=== PATIENT | male | born 1980 | race Caucasian/White ===

== ENCOUNTER 2023-03-28 15:04 | Emergency (ER) | payer OTHER, SELFPAY ==
--- NOTE | 2023-03-28 15:07 | ED.WOUNDLAC ---
HPI - Wound/Laceration General Chief Complaint: Wound/Laceration Stated Complaint: lac on face Source: patient and RN notes reviewed Mode of arrival: ambulatory Limitations: no limitations History of Present Illness HPI narrative: Patient is a 42-year-old male who presents to the [facility] with complaints of laceration to his face. Patient states that he had a jeep control arm fall on his face while he was working on the vehicle. He presents with a small 0.5 cm laceration to the bridge of his nose and a 2.5 cm laceration below his left eye just below the periorbital space. Bleeding of the wounds is controlled at this time. He denies loss of consciousness. Patient states that he attempted to glue the wound shut on his own at home just prior to arrival without success. States that his last tetanus was just under 10 years ago. Related Data Allergies Allergy/AdvReac Type Severity Reaction Status Date / Time No Known Allergies Allergy Verified 03/28/23 15:22 Review of Systems Review of Systems: CONSTITUTIONAL: Denies fever, chills, or sweats. EYES: Denies visual changes, redness, or discharge. ENT: Denies otalgia and sore throat CARDIOVASCULAR: Denies chest pain, palpitations, or edema. RESPIRATORY: Denies cough or dyspnea. GASTROINTESTINAL: Denies abdominal pain, nausea, vomiting, or diarrhea. GENITOURINARY: Denies dysuria or hematuria. SKIN: Denies rash or itching. Laceration to bridge of nose and just below the left periorbital space. MUSCULOSKELETAL: Denies back pain, joint pain, or myalgia. NEUROLOGIC: Denies headache, numbness, or weakness. Pertinent positives per HPI. [facility] Family History Family History Father Family history of lung cancer Patient's father is Mother Family history of malignant neoplasm of breast in first degree relative Patient's mother is Social History Social History Smoking status: Former smoker Smoking end date: 09/04/13 Alcohol intake: current Alcohol use details: social drinker Substance use: never Substance use type: does not use Comments At the time of my signature, I reviewed and agree with the nursing past medical, surgical, social, and family history. There is no relevant family history pertinent to the patient complaint. Exam Narrative: GENERAL: This is a well-nourished, well-developed patient, in no apparent distress. HEAD: normocephalic, atraumatic. EYES: PERRL. Sclera clear/white. Vision is grossly intact. EARS: External ears normal, auditory canals clear and without drainage, TMs normal without perforation. Hearing grossly intact. NOSE: External nose normal with no obvious nasal discharge, nares without redness, no rhinorrhea. THROAT: Mucous membranes moist, posterior pharynx clear. NECK: Neck supple, non-tender without lymphadenopathy, masses or thyromegaly. CARDIOVASCULAR: Regular rate and rhythm without murmurs, gallops, or rubs. RESPIRATORY: Clear to auscultation. Breath sounds equal bilaterally. No wheezes, rales, or rhonchi. GASTROINTESTINAL: Abdomen soft, non-tender, nondistended. Bowel sounds are active. No hepato-splenomegaly, or palpable masses. No guarding. SKIN: warm no suspicious lesions or rash, good texture and turgor. 0.5 cm laceration to bridge of nose. 2.5 cm laceration just below left periorbital area. Bleeding of wounds is controlled. NEURO: awake, alert, and oriented to person, place and time. There were no obvious focal neurologic abnormalities. EXTREMITIES: No clubbing, cyanosis, or edema. No joint tenderness, effusion, or edema noted. BACK: Nontender without deformity or crepitance. No flank tenderness. Course Course Level of Care: Express Care Visit Vital Signs Vital signs: Reviewed Procedures Laceration Laceration 1: Date: 03/28/23 Time: 15:36 Site:
[2023-03-28 15:14] VITALS: BP 138/77; PULSE 100; RESP 16; TEMP 36.9; O2SAT 98
[2023-03-28] MEDS: LIDOCAINE, EPINEPHRINE, TETRACAINE VISCOUS SOLN 3 ML TOPICAL (15:33)
[2023-03-28] MEDS: TETANUS,DIPHTHERIA,AC PERTUSSIS ADULT (0.5 ML) BOOSTRIX IM (15:34)
== END 2023-03-28 15:58 | disposition home or self-care (01) ==
PROVIDERS: Emergency Provider Nurse Practitioner; PCP Family Medicine
DX: S01.412A Laceration without foreign body of left cheek and temporomandibular area, initial encounter (principal); S01.21XA Laceration without foreign body of nose, initial encounter; W20.8XXA Other cause of strike by thrown, projected or falling object, initial encounter; Z23 Encounter for immunization; Z87.891 Personal history of nicotine dependence; K21.9 Gastro-esophageal reflux disease without esophagitis; Z86.14 Personal history of Methicillin resistant Staphylococcus aureus infection
CPT/HCPCS: 12011; 90471; 90715; 99212; G0463

== ENCOUNTER 2024-01-22 07:03 | Outpatient (CLI) | payer OTHER, SELFPAY ==
[2024-01-22 19:51] LABS: Hematocrit 45.4 % (42.0-52.0); Hemoglobin 14.5 g/dL (14.0-18.0); Mean Corpuscular HGB Conc 31.9 g/dl (32-36); Mean Corpuscular Hemoglobin 28.7 pg (26-34); Mean Corpuscular Volume 89.7 fl (80-100); Mean Platelet Volume 9.8 fl (7.4-10.4); Platelet Count Result 285 k/mm3 (150-375); Red Blood Count 5.06 M/mm3 (4.6-6.20); Red Cell Distribution Width 13.5 % (11.5-14.5); White Blood Count 7.5 K/mm3 (4.5-10.0)
[2024-01-22 19:59] LABS: Alanine Aminotransferase 17 U/L (6-50); Albumin Level 4.8 g/dL (3.5-5.1); Alkaline Phosphatase 79 U/L (38-126); Anion Gap 6 mmol/L (4-12); Aspartate Amino Transferase 49 U/L (17-59); Bilirubin,Total 0.6 mg/dL (0.2-1.3); Blood Urea Nitrogen 17 mg/dL (9-20); Calcium 9.3 mg/dL (8.4-10.2); Carbon Dioxide 28 mmol/L (22-30); Chloride 104 mmol/L (98-107); Cholesterol 168 mg/dL (0-200); Estimated Glomerular Filt Rate > 60; Glucose 104 mg/dL (65-110); HDL Direct 42 mg/dL; Potassium 4.3 mmol/L (3.4-5.0); Sodium 138 mmol/L (137-145); Triglycerides 152 mg/dL (<150)
[2024-01-22 20:11] LABS: LDL Cholesterol Direct 102 mg/dL
== END 2024-01-22 07:04 | disposition home or self-care (01) ==
PROVIDERS: PCP Nurse Practitioner Adult Health; Visit Provider Nurse Practitioner Adult Health
DX: Z13.9 Encounter for screening, unspecified (principal); Z79.899 Other long term (current) drug therapy
CPT/HCPCS: 36415; 80053; 80061; 82607; 82746; 84443; 85027

== ENCOUNTER 2024-02-16 01:28 | Day surgery (SDC) | payer OTHER, SELFPAY ==
[2024-02-08 10:24] VITALS: BMI 21.9
--- NOTE | 2024-02-08 10:32 | PC.NURSE ---
Report to the Outpatient Waiting Room, entrance under the green pavilion located off [facility], at time _0600_ on date _[id number]_. Planned Procedure Time: _0730_. Time changes happen often and if your time is changed the preop area will call you the afternoon before. - You and your visitor will be asked to self-screen and do not enter if you have any COVID symptoms. - A mask is optional within the hospital at this time. Patients may have clear liquids (water, carbonated beverages, clear teas, apple juice) until 3 hours prior to surgery with a maximum of 20 ounces. - No food from midnight until time of surgery Take the following medications with a SIP of water the morning of surgery: ___Zorfran or dicyclomine if needed. DO NOT STOP ANY OF YOUR OTHER PRESCRIPTION MEDICATIONS PRIOR TO SURGERY ?EXCEPT THE FOLLOWING Medications to discontinue per physician ____Vitamin B-12 Date to take last zxwl___[id number] Please no make-up, nail bermudian, hairspray, perfume, deodorant, or body powder the day of surgery. No jewelry (including any body piercings) or valuables the day of surgery, leave them at home. Please take ahildre shower or bath the night before, or the morning of, surgery with an antibacterial soap. Wear comfortable, loose fitting clothing. - Jewelry must be removed prior to entering the operating room. Rings and piercings that are not removed may be cut off. - The hospital will not accept responsibility for valuables. - Please leave all valuables, including medications, at home the day of surgery. If you are going home after surgery, a licensed distribution driver must drive you home. - NO public transportation without another adult if you receive anesthesia. - We recommend that an adult stay with you for 24 hours following discharge. - We also recommend that you do not drive, make important decision, drink alcoholic beverages, or take any drugs that were not prescribed by your health care provider for at least 24 hours after your discharge time. Follow any additional instructions given to you from your surgeon. If you or anyone in your household have experienced Covid symptoms in the past week, please notify your surgeon or the nurse liaison at the phone number below for possible testing. Telephone instructions given to __Justin__and asked if any additional questions and then verbalized understanding. Patient advised to call surgeon office or pre surgery nurse liaison [phone] if any additional questions.
[2024-02-16] VITALS (9 sets, daily range): BP systolic 94–120; BP diastolic 53–78; PULSE 55–70; RESP 12–20; TEMP 36.4; O2SAT 98–100
--- NOTE | 2024-02-16 06:42 | WPDANESEPPF ---
Anes - Initial Pre Proc Eval Procedure: Operation Date: 02/16/24 07:30 Proposed Procedures p Excision Frontal Scalp Cyst - Arron Basilio MD Date/Time: 02/16/24 06:42 Surgeon: Arron Basilio MD Pre Op Diagnosis: Frontal Scalp cyst Patient Data Age: 43 Gender: M Height: 1.83 m Weight: 73.2 kg Allergies Allergy/AdvReac Type Severity Reaction Status Date / Time No Known Allergies Allergy Verified 02/16/24 06:18 Home Medications Medication Instructions Recorded Confirmed Type omeprazole 40 mg capsule,delayed 40 mg PO DAILY 01/18/24 02/16/24 History release sertraline 25 mg tablet 25 mg PO DAILY #30 tabs 01/18/24 02/16/24 Rx mecobalamin (vitamin B12) 1,000 1,000 mcg sublingual DAILY #90 tabs 01/23/24 02/16/24 Rx mcg disintegrating tablet,sublingual dicyclomine 10 mg capsule 10 mg PO TID PRN abdominal pain 02/05/24 02/16/24 Rx #90 caps ondansetron HCl 4 mg tablet 4 mg PO Q8H PRN nausea and 02/06/24 02/08/24 Rx vomiting #20 tabs Patient hx anesthesia problems: none Family hx anesthesia problems: none Results Review: All pre-operative results and documents have been reviewed as part of the pre-operative evaluation. [facility] Past Medical History Medical History Bronchitis Right acute otitis media Seasonal allergies Surgical History Surgical History Hx of lymph node excision 2009 Family History Family History Father Family history of lung cancer Patient's father is Mother Family history of malignant neoplasm of breast in first degree relative Patient's mother is Social History Social History Smoking packs per day: 0.5 Smoking cigarettes per day: 10.0 Years smoked: 8 Smoking pack-years: 4.00 Smoking status: Former smoker Tobacco type: cigarettes Smoking end date: 02/07/14 Alcohol intake: current Alcohol use details: social drinker Substance use: current Substance use type: marijuana Other substance usage details: very seldom Lack of Transportation: No Lack of Food: Never True Current Housing: I Have Housing Concerned About Future Housing: No Difficulty Paying Gas/Electric Bills: No Difficulty Paying for Meds: No Currently Unemployed: No Education: High School Diploma/GED Living arrangements: with family Occupation/Education: occupation Gender identity (if verbalized by the patient): Male Spiritual care concerns: No Anes - Eval Final PreProcedure Day of Procedure 02/16/24 06:42 Patient weight: normal Heart: regular rate and rhythm Lungs: clear to auscultation Airway: Mallampati scale Neurological: alert and oriented Last oral intake: >/= 8 hours ASA classification: II Emergent: no Anesthetic plan: proceed Anesthesia type and monitoring: general LMA and standard monitoring Results Review: All pre-operative results and documents have been reviewed as part of the pre-operative evaluation. Ex smoker, approx 10 pack years, quit 2013. Informed Consent: The patient's anesthetic plan and its attendant risks and benefits were discussed with the patient/family/POA. Questions were solicited and answers provided to the satisfaction of the patient/family/POA.
[2024-02-16] MEDS: LACTATED RINGERS 1,000 ML 30 ML IV CONT ×2 (07:06→08:28)
--- NOTE | 2024-02-16 07:20 | WPDHPUPDATE1 ---
History and Physical Update Update Date/Time: 02/16/24 07:20 History and Physical has been reviewed, including an updated exam of the patient. There are NO changes in the patient's condition. Risks, benefits, and alternatives have been discussed and questions answered. Patient agrees to proceed with procedure.
[2024-02-16] MEDS: ceFAZolin 2 GM/D5W 50 ML 2 GM/50 ML BAG IVPB (07:32)
[2024-02-16] MEDS: LIDO 1%/EPINEPHRINE 1:100,000 50 ML VIAL 10 ML INFILTRATE (08:05)
[2024-02-16] MEDS: BUPivacaine HCL 0.5% 10 ML AMP INFILTRATE (08:06)
--- NOTE | 2024-02-16 08:40 | P.OP_ITS ---
Procedure Note - Detailed Date of Procedure 02/16/24 Pre-op Diagnosis Frontal Scalp cyst Post-op Diagnosis Other (Frontal scalp lipoma) Procedure Performed Excision of frontal scalp lipoma Surgeon Arron Basilio MD Anesthesia General Indications Patient is a 43-year-old white male who presented with a frontal scalp mass which been present for many years but slowly enlarging. Never had any prior history of infection of it. Presents now for excision because it is enlarging. Findings Patient had a 2x1.5x0.5cm frontal scalp lipomatous mass consistent with a benign lipoma. Description of Procedure After informed consent was obtained patient brought to the operating room was placed in supine position and then general LMA anesthesia was administered. The frontal scalp region was then prepped and draped usual sterile fashion. A time- out was then performed correctly identifying the patient as well as procedure to be performed. He was given some perioperative IV antibiotics. I 1st injected 1% lidocaine mixed with 0.5% Marcaine with some epinephrine around the subcutaneous scalp cyst mass. I then made a longitudinal incision over the central portion the mass the scalpel and then dissection was carried down through the dermis skin of the scalp. Once I got to subcutaneous tissues I then used electrocautery to dissect down to the wall of the mass. The extended underneath the layer of tissue which was likely the upper neurotic attachment of the frontal scalp and forehead muscle. This was then likely as sub muscular lipomatous mass. Once I opened this layer I could tell that was not a cyst and that it was a lipomatous mass. With retractors in place I could easily resected the Carter is mass utilized electrocautery right off of the frontal portion of the skull. There is no erosion of the mass into the bone at all. Once the masses we incised electrocautery it was measured and it was 2x1.5x0.5cm. It was sent to pathology for examination I then irrigated the incision with sterile saline solution. Hemostasis was excellent. I then proceeded to inject more local anesthetic mixture around the area for postoperative pain relief. I then performed a simple closure of the incision utilizing a 3-0 Prolene suture placed in a running and locking fashion. The wound was hemostatic. There was then cleaned and the patient was then awakened and taken to recovery. The patient tolerated the procedure well no complications. All sponges, needles, and instrument counts were correct at the end procedure. EBL was _10__cc. The patient was awakened and taken to recovery in stable and satisfactory condition. Implants None Estimated Blood Loss 10 Drains No Packing No Pathology Yes (Lipomatous mass of scalp sent to pathology) Complications No immediate complications Condition Stable Disposition PACU [facility] Billing Surgery - Charge Forward: Surgery Billing
== END 2024-02-16 10:08 | disposition home or self-care (01) ==
PROVIDERS: PCP Nurse Practitioner Adult Health; Visit Provider Surgery
PROC: (CPT 21012; principal; 2024-02-16 07:30)
DX: D17.0 Benign lipomatous neoplasm of skin and subcutaneous tissue of head, face and neck (principal); F12.90 Cannabis use, unspecified, uncomplicated; Z87.891 Personal history of nicotine dependence
CPT/HCPCS: 21012; 88304; A9270; J0690; J1100; J2250; J2405; J2704; J3010; J7120

== ENCOUNTER 2024-02-29 15:27 | Outpatient (CLI) | payer OTHER, SELFPAY ==
--- NOTE | ~2024-02-29 | US_ITS ---
EXAMINATION: US soft tissue UE LT DATE: 02/29/2024 16:26 INDICATION: Palpable lump at the left index finger TECHNIQUE: Multiple grayscale and Doppler ultrasound images of the region of concern at the left seco nd digit were obtained. COMPARISON: None FINDINGS: At the region of concern is an approximately 10 x 7 x 7 mm heterogeneous likely solid nodule which wi th isoechoic central components and peripheral hypoechogenicity with refraction artifact extending po steriorly from the margins of the nodule. The nodule appears to be positioned along the superficial m argin of the underlying flexor tendon. There is no appreciable internal flow on color Doppler. IMPRESSION: 1. Palpable lump of concern corresponds to an indeterminate 10 x 7 x 7 mm heterogeneous solid nodule which appears to be located along the superficial margin of the flexor tendon at the right second dig it. Differential would include neoplasm typically benign such as giant cell tumor of the tendon sheat h, fibromas, lipomas, peripheral nerve sheath tumors and glomus tumor or rarely malignant. Differenti al would also include inflammatory pseudonodules in setting of rheumatoid arthritis, tophaceous gout or foreign body granuloma. Would consider correlation with both plain radiographs to assess for matri x and either bone or periosteal involvement and with MRI to better assess any interaction between the nodule and the tendon sheath. Reviewed, dictated and finalized at location B. IMPRESSION: 1. Palpable lump of concern corresponds to an indeterminate 10 x 7 x 7 mm heter ogeneous solid nodule which appears to be located along the superficial margin of the flexor tendon at the right second digit. Differential would include neop lasm typically benign such as giant cell tumor of the tendon sheath, fibromas, lipomas, peripheral nerve sheath tumors and glomus tumor or rarely malignant. D ifferential would also include inflammatory pseudonodules in setting of rheumat oid arthritis, tophaceous gout or foreign body granuloma. Would consider correl ation with both plain radiographs to assess for matrix and either bone or perio steal involvement and with MRI to better assess any interaction between the nod ule and the tendon sheath.
== END 2024-02-29 15:28 | disposition home or self-care (01) ==
LOC: ANHIMG 15:28
PROVIDERS: PCP Nurse Practitioner Adult Health; Visit Provider Plastic Surgery
DX: R22.32 Localized swelling, mass and lump, left upper limb (principal)
CPT/HCPCS: 76882

== ENCOUNTER 2024-03-28 02:25 | Day surgery (SDC) | payer OTHER, SELFPAY ==
[2024-03-25 14:27] VITALS: BMI 22.0
--- NOTE | 2024-03-25 14:33 | PC.NURSE ---
Addendum entered by Bob Zuniga RN 03/25/24 14:40: Stop Vitamin B-12 now till after surgery. Original Note: Report to the Outpatient Waiting Room, entrance under the green pavilion located off [facility], at time _0715_ on date _[id number]_. Planned Procedure Time: _0915_. Time changes happen often and if your time is changed the preop area will call you the afternoon before. - You and your visitor will be asked to self-screen and do not enter if you have any COVID symptoms. - A mask is optional within the hospital at this time. - No food or drink from midnight until time of surgery Take the following medications with a SIP of water the morning of surgery: ___None DO NOT STOP ANY OF YOUR OTHER PRESCRIPTION MEDICATIONS PRIOR TO SURGERY ?EXCEPT THE FOLLOWING Medications to discontinue per physician None Date to take last dose Please no make-up, nail french, hairspray, perfume, deodorant, or body powder the day of surgery. No jewelry (including any body piercings) or valuables the day of surgery, leave them at home. Please take a shower or bath the night before, or the morning of, surgery with an antibacterial soap. Wear comfortable, loose fitting clothing. - Jewelry must be removed prior to entering the operating room. Rings and piercings that are not removed may be cut off. - The hospital will not accept responsibility for valuables. - Please leave all valuables, including medications, at home the day of surgery. If you are going home after surgery, a licensed commercial driver must drive you home. - NO public transportation without another adult if you receive anesthesia. - We recommend that an adult stay with you for 24 hours following discharge. - We also recommend that you do not drive, make important decision, drink alcoholic beverages, or take any drugs that were not prescribed by your health care provider for at least 24 hours after your discharge time. Follow any additional instructions given to you from your surgeon. If you or anyone in your household have experienced Covid symptoms in the past week, please notify your surgeon or the nurse liaison at the phone number below for possible testing. Telephone instructions given to ___Justin___and asked if any additional questions and then verbalized understanding. Patient advised to call surgeon office or pre surgery nurse liaison [phone] if any additional questions.
--- NOTE | 2024-03-28 07:02 | P.OP_ITS ---
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 The patient signed the consent form. PROCEDURE IN DETAIL:The patient taken back to OR on the stretcher in supine position. Time out performed with anesthesia, surgeon and staff agreeing on patient's name site and surgery to be performed SCDs were placed on the lower extremities and inflated. A tourniquet was placed on {left} upper extremity and antibiotics given IV After anesthesia administered sedation I injected {4}cc 1%lido and 0.5% marcaine plain for digital block in the palm The?{left upper extremity}?was prepped and draped in sterile fashion the??{left upper extremity} was? exsanguinated with Esmarch bandage proximal to the mass and tourniquet inflated to 250mmHg I proceeded with making a Karma incision over the mass on the volar aspect of left index finger over middle phalan through skin and dermis with a 15 blade scalpel. I elevated skin flap and then proceeded with using littler scissor to spread through subq tissue down to the mass in the deep tissue between subq and tendon sheath. I proceeded with circumferential of this cystic mass en bloc. The digital neurovascular bundles were protected throughout the procedure. I irrigated with normal saline and closed with 4-0 chromic sharply excise excess skin with 15 blade scalpel. A dressing of xeroform, 4x4, and tube gauze was applied after the tourniquet was let down noting the hand was warm and well perfused. The patient was then awaken from anesthesia and transferred to the recovery room in stable condition.? Complications - none EBL- 0cc Disposition - home in stable conditions [facility] was essential for positioining, retraction, closure and dressing placement [facility] [place] Billing Surgery - Charge Forward: Surgery Billing ([id number] for perri)
--- NOTE | 2024-03-28 07:02 | PM.HPGS ---
History of Present Illness History of Present Illness Chief complaint: localized swelling of mass and lump upper left Narrative: Patient seen and examined in pre-operative holding area. No interval change in medical history or symptoms. Patient recalls previous discussion of benefits and alternatives to procedure. Continues to desire to proceed with left index finger mass excision . Reviewed procedure, post-op expectations and risks including but not limited to bleeding, infection, injury to tendon/nerve/vessel, decreased hand function, stiffness, RSD, no change or worsening of symptoms, recurrence. I discussed the possible use of assistants and their participation in the case. Patient stated understanding and signed the consent form wishing to proceed. Review of Systems Review of Systems: All systems reviewed & are unremarkable except as noted in HPI and below PMFSH Past Medical History Medical History Bronchitis Right acute otitis media Seasonal allergies Surgical History Surgical History (Updated 02/27/24 @ 10:43 by Glia Cantu CMA) Hx of lymph node excision 2009 S/P excision of lipoma excision of frontal scalp lipoma 02/16/24 Dr. Arron Basilio Family History Family History Father Family history of lung cancer Patient's father is Mother Family history of malignant neoplasm of breast in first degree relative Patient's mother is Social History Social History Smoking packs per day: 0.5 Smoking cigarettes per day: 10.0 Years smoked: 18 Smoking pack-years: 9.00 Smoking status: Former smoker Tobacco type: cigarettes Smoking end date: 03/25/10 Alcohol intake: current Alcohol use details: social drinker Substance use: current Substance use type: marijuana Other substance usage details: very seldom Lack of Transportation: No Lack of Food: Never True Current Housing: I Have Housing Concerned About Future Housing: No Difficulty Paying Gas/Electric Bills: No Difficulty Paying for Meds: No Currently Unemployed: No Education: High School Diploma/GED Living arrangements: with family Occupation/Education: occupation Gender identity (if verbalized by the patient): Male Spiritual care concerns: No Meds Home Medications and Allergies Home Medications Medication Instructions Recorded Confirmed Type dicyclomine 10 mg capsule 10 mg PO TID PRN abdominal pain 02/05/24 03/25/24 Rx #90 caps ondansetron HCl 4 mg tablet 4 mg PO Q8H PRN nausea and 02/06/24 03/25/24 Rx vomiting #20 tabs mecobalamin (vitamin B12) 1,000 1,000 mcg sublingual DAILY #90 tabs 02/21/24 03/25/24 Rx mcg disintegrating tablet,sublingual omeprazole 40 mg capsule,delayed 40 mg PO DAILY #90 caps 02/21/24 03/25/24 Rx release sertraline 25 mg tablet 25 mg PO DAILY #90 tabs 02/26/24 03/25/24 Rx Allergies Allergy/AdvReac Type Severity Reaction Status Date / Time No Known Allergies Allergy Verified 03/25/24 14:26 Exam Narrative: unchanged Assessment and Plan Assessment and plan (1) Localized swelling, mass and lump, left upper limb: Code(s): R22.32 - Localized swelling, mass and lump, left upper limb Status: Acute Assessment and Plan: cont as above
[2024-03-28 07:30] VITALS: BP 118/7; PULSE 68; RESP 16; TEMP 36.8; O2SAT 100; BMI 21.4
[2024-03-28] MEDS: LIDOCAINE HCL 1% LOCAL INJ 20 ML VIAL 10 ML INFILTRATE (07:44)
[2024-03-28] MEDS: LACTATED RINGERS 1,000 ML 30 ML IV CONT (08:00)
--- NOTE | 2024-03-28 08:18 | WPDANESEPPF ---
Anes - Initial Pre Proc Eval Procedure: Operation Date: 03/28/24 09:15 Proposed Procedures p Excision of Left Index Finger Mass - Semaj De Guzman MD Date/Time: 03/28/24 08:18 Surgeon: Semaj De Guzman MD Pre Op Diagnosis: localized swelling of mass and lump upper left Patient Data Age: 43 Gender: M Height: 1.83 m Weight: 71.7 kg Allergies Allergy/AdvReac Type Severity Reaction Status Date / Time No Known Allergies Allergy Verified 03/28/24 08:15 Home Medications Medication Instructions Recorded Confirmed Type dicyclomine 10 mg capsule 10 mg PO TID PRN abdominal pain 02/05/24 03/25/24 Rx #90 caps ondansetron HCl 4 mg tablet 4 mg PO Q8H PRN nausea and 02/06/24 03/25/24 Rx vomiting #20 tabs mecobalamin (vitamin B12) 1,000 1,000 mcg sublingual DAILY #90 tabs 02/21/24 03/25/24 Rx mcg disintegrating tablet,sublingual omeprazole 40 mg capsule,delayed 40 mg PO DAILY #90 caps 02/21/24 03/25/24 Rx release sertraline 25 mg tablet 25 mg PO DAILY #90 tabs 02/26/24 03/25/24 Rx Patient hx anesthesia problems: none Family hx anesthesia problems: none Results Review: All pre-operative results and documents have been reviewed as part of the pre-operative evaluation. ON LICENSE OF [facility] Past Medical History Medical History Bronchitis Right acute otitis media Seasonal allergies Surgical History Surgical History Hx of lymph node excision 2009 S/P excision of lipoma excision of frontal scalp lipoma 02/16/24 Dr. Arron Basilio Family History Family History Father Family history of lung cancer Patient's father is Mother Family history of malignant neoplasm of breast in first degree relative Patient's mother is Social History Social History Smoking packs per day: 0.5 Smoking cigarettes per day: 10.0 Years smoked: 18 Smoking pack-years: 9.00 Smoking status: Former smoker Tobacco type: cigarettes Smoking end date: 03/25/10 Alcohol intake: current Alcohol use details: social drinker Substance use: current Substance use type: marijuana Other substance usage details: very seldom Lack of Transportation: No Lack of Food: Never True Current Housing: I Have Housing Concerned About Future Housing: No Difficulty Paying Gas/Electric Bills: No Difficulty Paying for Meds: No Currently Unemployed: No Education: High School Diploma/GED Living arrangements: with family Occupation/Education: occupation Gender identity (if verbalized by the patient): Male Spiritual care concerns: No Anes - Eval Final PreProcedure Day of Procedure 03/28/24 08:18 Patient weight: normal Heart: regular rate and rhythm Lungs: clear to auscultation Airway: Mallampati scale class II Neurological: alert and oriented Last oral intake: >/= 8 hours ASA classification: II Emergent: no Anesthetic plan: proceed Anesthesia type and monitoring: general GIVS and standard monitoring Results Review: All pre-operative results and documents have been reviewed as part of the pre-operative evaluation. Pt ex smoker, quit approx 2009. Informed Consent: The patient's anesthetic plan and its attendant risks and benefits were discussed with the patient/family/POA. Questions were solicited and answers provided to the satisfaction of the patient/family/POA.
[2024-03-28] MEDS: ceFAZolin 2 GM/D5W 50 ML 2 GM/50 ML BAG IVPB (08:59)
[2024-03-28 09:24] VITALS: BP 107/58; PULSE 64; RESP 12; O2SAT 98
[2024-03-28] MEDS: oxyCODONE HCL (*CRX) 5 MG TAB IR PO (09:48)
[2024-03-28 09:50] VITALS: BP 100/67; PULSE 58; RESP 16; O2SAT 98
[2024-03-28 10:20] VITALS: BP 95/56; PULSE 55; RESP 18
--- NOTE | 2024-03-28 10:21 | SUR.PHASEII ---
Dr. Gaming notified by this RN at 1021 of patient's BP 90s/50s and HR in the 50s. Patient asymptomatic. Per MD no new orders at this time, okay to proceed with discharge.
[2024-03-28 10:30] VITALS: BP 95/55; PULSE 54; RESP 18
== END 2024-03-28 10:36 | disposition home or self-care (01) ==
PROVIDERS: PCP Nurse Practitioner Adult Health; Visit Provider Plastic Surgery
PROC: (CPT 11422; principal; 2024-03-28 09:15)
DX: L72.0 Epidermal cyst (principal); Z98.890 Other specified postprocedural states; Z87.891 Personal history of nicotine dependence; Z86.018 Personal history of other benign neoplasm; Z80.1 Family history of malignant neoplasm of trachea, bronchus and lung; Z80.3 Family history of malignant neoplasm of breast
CPT/HCPCS: 11422; 88304; A9270; J0690; J1100; J2250; J2405; J2704; J3010; J7120

== ENCOUNTER 2024-04-16 14:59 | Outpatient (CLI) | payer OTHER, SELFPAY ==
[2024-04-16 19:49] LABS: Amylase 105 U/L (30-110); Lipase 97 U/L (23-300)
== END 2024-04-16 15:00 | disposition home or self-care (01) ==
LOC: ANHBWCLAB 15:01
PROVIDERS: PCP Nurse Practitioner Adult Health; Visit Provider Nurse Practitioner Family
DX: R63.0 Anorexia (principal); R11.2 Nausea with vomiting, unspecified; K76.0 Fatty (change of) liver, not elsewhere classified
CPT/HCPCS: 36415; 82150; 83690

== ENCOUNTER 2024-05-04 09:44 | Outpatient (CLI) | payer OTHER, SELFPAY ==
--- NOTE | ~2024-05-04 | US_ITS ---
US abdomen complete EXAMINATION: US Abdomen Complete INDICATION: Nausea and vomiting PROCEDURE: Realtime High Resolution abdomen ultrasound. COMPARISON: No prior studies for comparison FINDINGS: Gallbladder within normal limits. No gallstones, pericholecystic fluid, gallbladder wall t hickening or biliary dilatation. Common bile duct measures 4 mm. Liver echotexture within normal limits without focal mass. Pancreas within normal limits. Pancreati c tail is obscured by bowel gas. Spleen is unremarkeable. Renal echotexture is within normal limits bilaterally without hydronephrosis, contour deforming mass or renal stone. Right kidney measures 10.9 cm. Left kidney measures 10.9 cm. Visualized aspects of the aorta and IVC are within normal limits. Portal vein is patent. No sonograph ic Llanos's sign indicated by the technologist. IMPRESSION: 1: Normal abdominal ultrasound. Reviewed, dictated and finalized at location B.
== END 2024-05-04 09:45 | disposition home or self-care (01) ==
PROVIDERS: PCP Nurse Practitioner Adult Health; Visit Provider Nurse Practitioner Family
DX: K76.0 Fatty (change of) liver, not elsewhere classified (principal); R63.0 Anorexia
CPT/HCPCS: 76700

== ENCOUNTER 2024-06-24 15:56 | Outpatient (CLI) | payer OTHER, SELFPAY ==
[2024-06-24 19:28] LABS: Alanine Aminotransferase 17 U/L (6-50); Albumin Level 4.3 g/dL (3.5-5.1); Alkaline Phosphatase 69 U/L (38-126); Anion Gap 6 mmol/L (4-12); Aspartate Amino Transferase 37 U/L (17-59); Bilirubin,Total 0.5 mg/dL (0.2-1.3); Blood Urea Nitrogen 14 mg/dL (9-20); Calcium 9.2 mg/dL (8.4-10.2); Carbon Dioxide 31 mmol/L (22-30); Chloride 100 mmol/L (98-107); Cholesterol 151 mg/dL (0-200); Estimated Glomerular Filt Rate > 60; Glucose 114 mg/dL (65-110); HDL Direct 42 mg/dL; Potassium 3.8 mmol/L (3.4-5.0); Sodium 137 mmol/L (137-145); Triglycerides 145 mg/dL (<150)
[2024-06-24 19:40] LABS: LDL Cholesterol Direct 78 mg/dL
== END 2024-06-24 15:57 | disposition home or self-care (01) ==
PROVIDERS: PCP Nurse Practitioner Adult Health; Visit Provider Nurse Practitioner Adult Health
DX: Z13.9 Encounter for screening, unspecified (principal); E53.8 Deficiency of other specified B group vitamins
CPT/HCPCS: 36415; 80053; 80061; 82607

== ENCOUNTER 2024-07-15 02:37 | Day surgery (SDC) | payer OTHER, SELFPAY ==
[2024-07-08 10:06] VITALS: BMI 22.0
--- NOTE | 2024-07-08 10:07 | PC.NURSE ---
Report to the Outpatient Waiting Room, entrance under the green pavilion located off [facility], at time _1000_ on date _07-28-1621_. Planned Procedure Time: _1200_.? Time changes happen often and if your time is changed the preop area will call you the afternoon before. - You and your visitor will be asked to self-screen and do not enter if you have any COVID symptoms. Please call surgeon if you need to reschedule. - A mask is optional within the hospital at this time. - No food or drink from midnight until time of surgery and no smoking Take only the following medications with a SIP of water on the morning of surgery: Antibiotic if still taking. DO NOT STOP ANY OF YOUR OTHER PRESCRIPTION MEDICATIONS PRIOR TO SURGERY EXCEPT THE FOLLOWING Medications to discontinue per physician ____Vitamin B-12____ Date to take last lwss__[id number]____ Please no make-up, nail ghanaian, hairspray, perfume, deodorant, or body powder the day of surgery.? No jewelry (including any body piercings) or valuables the day of surgery, leave them at home.? Please take a shower or bath the night before, or the morning of, surgery with an antibacterial soap.? Wear comfortable, loose fitting clothing.? - Jewelry must be removed prior to entering the operating room.? Rings and piercings that are not removed may be cut off. - The hospital will not accept responsibility for valuables.? - Please leave all valuables, including medications, at home the day of surgery. If you are going home after surgery, a licensed backhaul driver must drive you home.? - NO public transportation without another adult if you receive anesthesia. - We recommend that an adult stay with you for 24 hours following discharge. - We also recommend that you do not drive, make important decision, drink alcoholic beverages, or take any drugs that were not prescribed by your health care provider for at least 24 hours after your discharge time. Follow any additional instructions given to you from your surgeon. Telephone instructions given to __Justin__and asked if any additional questions and then verbalized understanding. Patient advised to call surgeon office or pre surgery nurse liaison [phone] if any additional questions.
--- NOTE | 2024-07-14 09:33 | WPDANESEPPF ---
Anes - Initial Pre Proc Eval Procedure: Operation Date: 07/15/24 12:00 Proposed Procedures p Transanal Hemorrhoidal Dearterialization - Arron Basilio MD Date/Time: 07/14/24 09:33 Surgeon: Arron Basilio MD Pre Op Diagnosis: grade3 internal hemorrhoids Patient Data Age: 43 Gender: M Height: 1.83 m Weight: 73.6 kg Allergies Allergy/AdvReac Type Severity Reaction Status Date / Time No Known Allergies Allergy Verified 07/15/24 10:27 Home Medications Medication Instructions Recorded Confirmed Type dicyclomine 10 mg capsule 10 mg PO TID PRN abdominal pain 02/05/24 07/08/24 Rx #90 caps mecobalamin (vitamin B12) 1,000 1,000 mcg sublingual DAILY #90 tabs 02/21/24 07/15/24 Rx mcg disintegrating tablet,sublingual omeprazole 40 mg capsule,delayed 40 mg PO DAILY #90 caps 02/21/24 07/08/24 Rx release sertraline 50 mg tablet 50 mg PO DAILY #90 tabs 06/24/24 07/08/24 Rx clindamycin HCl 300 mg capsule 300 mg PO BID 07/08/24 07/08/24 History Patient hx anesthesia problems: none Family hx anesthesia problems: none Results Review: All pre-operative results and documents have been reviewed as part of the pre-operative evaluation. [facility] Past Medical History Medical History Bronchitis Right acute otitis media Seasonal allergies Surgical History Surgical History Hx of lymph node excision 2009 S/P excision of lipoma excision of frontal scalp lipoma 02/16/24 Dr. Arron Basilio Family History Family History Father Family history of lung cancer Patient's father is Mother Family history of malignant neoplasm of breast in first degree relative Patient's mother is Social History Social History Smoking packs per day: 0.5 Smoking cigarettes per day: 10.0 Years smoked: 10 Smoking pack-years: 5.00 Smoking status: Former smoker Tobacco type: cigarettes Smoking end date: 07/08/13 Alcohol intake: current Alcohol use details: social drinker Substance use: current Substance use type: marijuana Other substance usage details: very seldom Lack of Transportation: No Lack of Food: Never True Current Housing: I Have Housing Concerned About Future Housing: No Difficulty Paying Gas/Electric Bills: No Difficulty Paying for Meds: No Currently Unemployed: No Education: High School Diploma/GED Living arrangements: with family Occupation/Education: occupation Gender identity (if verbalized by the patient): Male Spiritual care concerns: No Anes - Eval Final PreProcedure Day of Procedure 07/14/24 09:33 Patient weight: normal Heart: regular rate and rhythm Lungs: clear to auscultation and normal air movement Airway: Mallampati scale class II Neurological: alert and oriented Last oral intake: >/= 8 hours ASA classification: II Emergent: no Anesthetic plan: proceed Anesthesia type and monitoring: general ETT and standard monitoring Results Review: All pre-operative results and documents have been reviewed as part of the pre-operative evaluation. Informed Consent: The patient's anesthetic plan and its attendant risks and benefits were discussed with the patient/family/POA. Questions were solicited and answers provided to the satisfaction of the patient/family/POA.
[2024-07-15] VITALS (8 sets, daily range): BP systolic 121–152; BP diastolic 68–90; PULSE 58–80; RESP 14–22; TEMP 36.3–37.3; O2SAT 98–100; BMI 20.7
[2024-07-15] MEDS: LACTATED RINGERS 1,000 ML 30 ML IV CONT (10:35)
[2024-07-15] MEDS: KETOROLAC 15 MG/ML VIAL (*BKC) IV PUSH ×2 (10:45→13:46)
[2024-07-15] MEDS: ACETAMINOPHEN 500 MG TABLET 1000 MG PO (10:45)
--- NOTE | 2024-07-15 12:06 | P.HP_ITS ---
H&P: HPI History of Present Illness Date/Time: 07/15/24 12:06 Chief Complaint: Symptomatic hemorrhoids Narrative: Mr. Piedra presents to the office at the request of Meri Soria APRN, for evaluation. He has been experiencing protruding hemorrhoidal tissue and occasional bleeding. Has tried Anusol cream without relief. No associated pain and no history of thrombosed hemorrhoids. 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 Has had a colonoscopy in [address] Campos for work-up of abdominal cramping. Results were negative and no abnormalities seen. Review of Systems Review of Systems: The remainder of the review of systems to include constitutional, HEENT, cardiovascular, respiratory, GI, , integumentary, musculoskeletal, endocrine, immunologic, hematologic, psychiatric, and neurologic are all negative except for which is mentioned above in the HPI. [facility] Past Medical History Medical History Bronchitis Right acute otitis media Seasonal allergies Surgical History Surgical History Hx of lymph node excision 2009 S/P excision of lipoma excision of frontal scalp lipoma 02/16/24 Dr. Arron Basilio Family History Family History Father Family history of lung cancer Patient's father is Mother Family history of malignant neoplasm of breast in first degree relative Patient's mother is Social History Social History Smoking packs per day: 0.5 Smoking cigarettes per day: 10.0 Years smoked: 10 Smoking pack-years: 5.00 Smoking status: Former smoker Tobacco type: cigarettes Smoking end date: 07/08/13 Alcohol intake: current Alcohol use details: social drinker Substance use: current Substance use type: marijuana Other substance usage details: very seldom Lack of Transportation: No Lack of Food: Never True Current Housing: I Have Housing Concerned About Future Housing: No Difficulty Paying Gas/Electric Bills: No Difficulty Paying for Meds: No Currently Unemployed: No Education: High School Diploma/GED Living arrangements: with family Occupation/Education: occupation Gender identity (if verbalized by the patient): Male Spiritual care concerns: No Meds Home Medications and Allergies Home Medications Medication Instructions Recorded Confirmed Type dicyclomine 10 mg capsule 10 mg PO TID PRN abdominal pain 02/05/24 07/08/24 Rx #90 caps mecobalamin (vitamin B12) 1,000 1,000 mcg sublingual DAILY #90 tabs 02/21/24 07/15/24 Rx mcg disintegrating tablet,sublingual omeprazole 40 mg capsule,delayed 40 mg PO DAILY #90 caps 02/21/24 07/08/24 Rx release sertraline 50 mg tablet 50 mg PO DAILY #90 tabs 06/24/24 07/08/24 Rx clindamycin HCl 300 mg capsule 300 mg PO BID 07/08/24 07/08/24 History Allergies Allergy/AdvReac Type Severity Reaction Status Date / Time No Known Allergies Allergy Verified 07/15/24 10:27 Vital Signs Vital Signs - 24 hr 07/15/24 10:08 Temperature 37.3 C Pulse Rate 72 Respiratory Rate 14 Blood Pressure 121/76 Pulse Oximetry 98 Oxygen Delivery Room Air Exam Const: General: comfortable and no acute distress HENMT: Ears: TM's normal bilaterally Face/Nose/Sinus: Normal nares present Mouth: Yes moist mucous membranes Eyes: General: appearance normal, both eyes and all related structures Sclera: sclerae normal Pupils: Equal, round and reactive pupils present EOM: EOMs intact bilaterally Neck: Neck: supple and no JVD Resp: Effort & Inspection: normal respiratory effort Auscultation: clear to auscultation bilaterally Cardio: Rate: regular rate Rhythm: regular rhythm GI: GI Palp: Yes Soft to palpation, No Firmness to palpation present (GI), No Tenderness to palpation present (GI), No Guarding due to palpation present (GI) and No Hernia present Other: Prostate is normal sized and smooth. No rectal masses. Grade III reducible nonbleeding nonthrombosed circum internal hemorrhoids. Skin: General skin exam: normal color and no rashes or lesions noted Neuro: General: gait normal Speech: normal speech Motor exam (neuro): 5/5 motor strength present throughout Sensory Exam: normal sensation Extrem: General: normal to inspection Psych: Mental Status: mental status grossly normal Affect: normal affect Assessment and Plan Assessment and plan (1) Hemorrhoid: Qualifiers: Hemorrhoid type: unspecified Qualified Code(s): K64.9 - Unspecified hemorrhoids Code(s): K64.9 - Unspecified hemorrhoids Status: Acute Assessment and Plan: Prior to patients visit, I reviewed the office note of Meri Soria APRN as well as his previous colonoscopy. Patient has symptomatic grade III internal hemorrhoids. No external component. Would recommend transanal hemorrhoidal dearterialization procedure procedure. The surgery was explained in detail including description, risks, benefits, post-operative restrictions, expected amount of post-operative pain, recovery, and anticipated outcome. Patient is agreeable. He will call back to schedule after he speaks with his and looks at his schedule. Pre-op surgery hemorrhoid prep given.
--- NOTE | 2024-07-15 12:10 | WPDHPUPDATE1 ---
History and Physical Update Update Date/Time: 07/15/24 12:10 History and Physical has been reviewed, including an updated exam of the patient. There are NO changes in the patient's condition. Risks, benefits, and alternatives have been discussed and questions answered. Patient agrees to proceed with procedure.
[2024-07-15] MEDS: ceFAZolin 2 GM/D5W 50 ML 2 GM/50 ML BAG IVPB (12:29)
[2024-07-15] MEDS: BUPivacaine HCL 0.5% PF 30 ML VIAL INFILTRATE (12:37)
[2024-07-15] MEDS: LIDO 1%/EPINEPHRINE 1:100,000 50 ML VIAL 30 ML INFILTRATE (12:38)
[2024-07-15] MEDS: LIDOCAINE HCL 2% GEL UROJET 10 ML PKG MUCOUS MEM (13:16)
--- NOTE | 2024-07-15 14:18 | PM.OP ---
Procedure Note - Brief Procedure Note - Brief Date of procedure: 07/15/24 grade3 internal hemorrhoids Post-op diagnosis: Same Procedure performed: THD Procedure Surgeon: Arron Basilio MD Anesthesia: GETA Estimated blood loss (mL): 25 Packing: Yes (Gelfoam in anal canal) Pathology: None sent Complications: No immediate complications Condition: Stable Disposition: PACU
[2024-07-15] MEDS: oxyCODONE HCL (*CRX) 5 MG TAB IR PO (15:05)
--- NOTE | 2024-07-16 13:20 | W.PM.PROC2 ---
Procedure Note - Detailed Date of Procedure 07/15/24 Pre-op Diagnosis Grade 3 bleeding and prolapsing internal hemorrhoids Post-op Diagnosis Same Procedure Performed Transanal hemorrhoidal de arterialization procedure with proctopexy of prolapsing redundant mucosa. Surgeon Arron Basilio MD Shot Packer Graciela Garner [facility] Anesthesia General Indications patient is a 43-year-old white male who presented with complaints of bleeding from his internal hemorrhoids. On examination has large prolapsing grade 3 internal hemorrhoids. Findings Patient had large prolapsing grade 3 internal hemorrhoids located at the 2:00, 6:00, and 9:00 positions with the patient prone. There is no thrombosis of the hemorrhoids. No masses were seen in the anal canal or distal rectum. Description of Procedure After informed consent was obtained patient brought to the operating room placed supine position and general endotracheal anesthesia was administered. He was then turned into the prone jazmin-knife position on the operating table. Great care was taken to make sure that all the pressure points were well padded. The area the perianal region was then prepped and draped usual sterile fashion. First started by manually dilating the anal sphincters gently with lubrication. A large anal speculum was then placed into the anal canal and performed a circumferential evaluation of the anal canal and distal rectum. There were no masses or polyps in the distal rectum. Anal canal had no masses either. He did have large prolapsing nonthrombosed non ulcerated hemorrhoids located at the 2:00, 6:00, and 9:00 position with the patient prone. I then proceeded to perform the THC procedure. The specialized THD anal speculum was inserted into the anal canal. At the 1 o'clock, 3 o'clock, 5 o'clock, 7 o'clock, 9 o'clock, and 11 o'clock positions a 2-0 Vicryl suture was placed through the predetermined slot in the specialized anal speculum to ligate the terminal branch of the hemorrhoidal artery at each of those positions. The position of the artery was found with the Doppler probe attached to the speculum. The 2-0 Vicryl suture was then run in a non locking fashion gathering up the redundant mucosa and internal hemorrhoid tissue all the way out to the dentate line. At this point I then tied down the sutures sliding the redundant tissue back up into the anal canal to pexy the tissue and prevent it from prolapsing. This was done at all 6 of those positions. There is no significant bleeding from the pexy of the redundant mucosa and hemorrhoid tissue. I then placed a regular anal speculum back into the anal canal. There was no significant narrowing of the anal canal. I then irrigated out the anal canal sterile saline solution hemostasis was good. I then placed a perianal block utilizing 1% lidocaine mixed with 0.5% Marcaine and injecting around the anal opening. I then placed bilateral pudendal nerve blocks with the same local anesthetic mixture. I then placed a lidocaine jelly coated piece of Gelfoam into the anal canal. Air was then cleaned the 4x4 gauze ABD pad and disposable underwear was used for final dressing. The patient tolerated the procedure well no complications. All sponges, needles, and instrument counts were correct at the end procedure. EBL was _25__cc. The patient was awakened and taken to recovery in stable and satisfactory condition. Implants None Estimated Blood Loss 25 Drains No Packing Yes ( Gelfoam packing anal) Pathology None sent Complications No immediate complications Condition Stable Disposition PACU [facility] Billing Surgery - Charge Forward: Surgery Billing
== END 2024-07-15 15:59 | disposition home or self-care (01) ==
PROVIDERS: PCP Nurse Practitioner Adult Health; Visit Provider Surgery
PROC: (CPT 46948; principal; 2024-07-15 12:00)
DX: K64.2 Third degree hemorrhoids (principal); Z87.891 Personal history of nicotine dependence
CPT/HCPCS: 46948; 45541; A9270; J0690; J1100; J1596; J1885; J2003; J2004; J2250; J2371; J2405; J2704; J3010; J7120

== ENCOUNTER 2024-08-30 16:07 | Emergency (ER) | payer OTHER, SELFPAY ==
[2024-08-30 16:12] VITALS: BP 137/87; PULSE 108; RESP 16; TEMP 37.3; O2SAT 99
--- NOTE | 2024-08-30 16:24 | ED.ABDPAIN ---
HPI - Abdominal Pain General Chief Complaint: Abdominal Pain Stated Complaint: Vomiting/Abdominal Pain/Diarrhea/Fever Time Seen by Provider: 08/30/24 16:24 Source: patient and RN notes reviewed Mode of arrival: ambulatory Limitations: no limitations History of Present Illness HPI narrative: 43-year-old male presented for complaint of nausea, vomiting, diarrhea and abdominal pain, and subjective fever this morning. Onset 12:00 a.m. Says he has had multiple vomiting episodes, but diarrhea subsided at noon. Has not been able to tolerate PO. Patient reports a history of vomiting, but says he usually does not have abdominal pain or fevers. Pt has dicyclomine and Zofran at home but states he has not taken them because they are hit or miss when they help. Patient denies hematochezia, melena, or lethargy. Related Data Allergies Allergy/AdvReac Type Severity Reaction Status Date / Time No Known Allergies Allergy Verified 07/30/24 09:26 Review of Systems Review of Systems: CONSTITUTIONAL: Denies body aches, fever, chills ENT: Denies rhinorrhea, congestion CARDIOVASCULAR: Denies chest pain, palpitations, or edema. RESPIRATORY: Denies cough or dyspnea. GASTROINTESTINAL: Endorses abdominal pain, nausea, vomiting, diarrhea. Denies hematochezia, melena, hematemesis GENITOURINARY: Denies dysuria, hematuria, or CVA tenderness. SKIN: Denies rash, itching, or wounds. MUSCULOSKELETAL: Denies back pain, joint pain, or myalgia. NEUROLOGIC: Denies headache, numbness, tingling, or weakness. All systems reviewed & are unremarkable except as noted in HPI and below PMFSH Past Medical History Medical History Seasonal allergies Bronchitis Right acute otitis media Surgical History Surgical History Hx of hemorrhoidectomy 07/16/24 Transanal hemorrhoidal de arterialization procedure with proctopexy of prolapsing redundant mucosa. Dr. Basilio S/P excision of lipoma excision of frontal scalp lipoma 02/16/24 Dr. Arron Basilio Hx of lymph node excision 2009 Family History Family History Father Family history of lung cancer Patient's father is Mother Family history of malignant neoplasm of breast in first degree relative Patient's mother is Social History Social History Smoking packs per day: 0.5 Smoking cigarettes per day: 10.0 Years smoked: 10 Smoking pack-years: 5.00 Smoking status: Former smoker Tobacco type: cigarettes Smoking end date: 07/08/13 Alcohol intake: current Alcohol use details: social drinker Substance use: current Substance use type: marijuana Other substance usage details: very seldom Lack of Transportation: No Lack of Food: Never True Current Housing: I Have Housing Concerned About Future Housing: No Difficulty Paying Gas/Electric Bills: No Difficulty Paying for Meds: No Currently Unemployed: No Education: High School Diploma/GED Living arrangements: with family Occupation/Education: occupation Gender identity (if verbalized by the patient): Male Spiritual care concerns: No Comments At time of signature, I have reviewed and agree with nursing past medical, surgical, social and family history unless otherwise noted. Please see nursing chart for further information. There is no relevant family history pertinent to the presenting complaint Exam Narrative: GENERAL: mildly ill-appearing, and in no acute distress. EYES: EOMI. Conjunctivae normal. ENT: Mucous membranes pink and moist. CHEST: No respiratory distress. Clear to auscultation. HEART: Regular rate and rhythm. No murmur appreciated. Normal peripheral pulses. ABDOMEN: abd soft, nondistended, normal active bowel sounds. mildly tender abdomen to epigastric area. No guarding, rebound tenderness, asymmetry SKIN: Warm, dry, no rash. Capillary refill normal. Normal skin turgor. NEURO: No focal deficits. Alert and oriented x3. PSYCH: Normal affect. Course Course Emergency Course: Patient is aware of diagnosis, understands and agrees to treatment plan. Anticipatory guidance given. Patient agrees to follow-up as directed and is aware of reasons to seek care at the emergency department. Portions of this record may have been created with voice recognition software Level of Care: Express Care Visit Vital Signs Vital signs: Vital Signs Temperature 99.2 F 08/30/24 16:12 Pulse Rate 108 H 08/30/24 16:12 Respiratory Rate 16 08/30/24 16:12 Blood Pressure 137/87 08/30/24 16:12 Pulse Oximetry 99 08/30/24 16:12 Oxygen Delivery Room Air 08/30/24 16:12 Temperature 99.2 F 08/30/24 16:12 Pulse Rate 108 H 08/30/24 16:12 Respiratory Rate 16 08/30/24 16:12 Blood Pressure 137/87 08/30/24 16:12 Pulse Oximetry 99 08/30/24 16:12 Oxygen Delivery Room Air 08/30/24 16:12 MDM - Abdominal Pain MDM Narrative Medical decision making narrative: Neg flu and covid. Discussed physical exam findings, advised ER transfer for abdominal pain, nausea, vomiting and fever. Pt refuses at this time. States he will take his zofran and dicyclomine before going to the er. ODT zofran given prior to dC. The patient is clinically sober, AA&Ox3, free from distracting injury. The patient has demonstrated concrete thinking/reasoning, has maintained an counter server/reasonable conversation, appears to have intact insight/judgment/reason and therefore has capacity to make decisions. Given the patients presentation, we communicated our concern for Abdominal pain and vomiting in laymans terms. The patient verbalized an understanding. The patient is aware the evaluation is incomplete & many troublesome conditions have not been r/o. We have discussed the need for further ED workup. We have discussed the range of possible dx, potential testing & treatment options. Our discussions included the potential outcomes of leaving AMA, including worsening of their condition, becoming permanently disabled/in pain/critically ill, or . Despite these efforts, we were unable to convince the pt to go to the ER. The patient is refusing any further care and is leaving against medical advice. We have attempted to offer tx/rx/guidance for any dangerous conditions which are most likely and/or dangerous. We have answered all questions and have implored the patient to go to ER [facility] to complete the w/u. A staff member witnessed the patient consenting to AMA. Lab Data Labs: Lab Results 08/30/24 Range/Units 16:41 POC Influenza A Ag Negative (Negative) POC Influenza B Ag Negative (Negative) POC SARS CoV-2 Ag Negative (Negative) Discharge Plan Discharge Clinical Impression: Abdominal pain Patient Disposition: Left Against Medical Advice Condition: Stable Patient Language: Bulgarian Prescriptions: No Action dicyclomine 10 mg capsule 10 mg PO TID PRN (Reason: abdominal pain) Qty: 90 3RF docusate sodium [Colace] 100 mg capsule 100 mg PO BID Qty: 60 0RF omeprazole 40 mg capsule,delayed release(DR/EC) 40 mg PO DAILY Qty: 90 1RF sertraline 50 mg tablet 50 mg PO DAILY Qty: 90 3RF Rx Instructions: Says takes HS mecobalamin (vitamin B12) 1,000 mcg tablet,disintegrating 1,000 mcg sublingual DAILY Qty: 90 3RF Rx Instructions: place tablet under tongue and allow to dissolve for at least30 secs before swallowing Follow-up/Referrals: Betty Macias APRN [Primary Care Provider] - Time of Disposition: 17:00
[2024-08-30 16:42] LABS: EDCOVIDSCREEN Negative (Negative); EDINFLUASCREEN Negative (Negative); EDINFLUBSCREEN Negative (Negative)
[2024-08-30] MEDS: ONDANSETRON HCL ODT 4 MG TABLET SUBLINGUAL (17:13)
== END 2024-08-30 17:15 | disposition left against medical advice (07) ==
PROVIDERS: Emergency Provider Nurse Practitioner Family; PCP Nurse Practitioner Adult Health
DX: R10.13 Epigastric pain (principal); Z20.822 Contact with and (suspected) exposure to COVID-19; Z87.891 Personal history of nicotine dependence
CPT/HCPCS: 87426; 87804; 99213; A9270; G0463

== ENCOUNTER 2025-02-25 15:55 | Outpatient (CLI) | payer OTHER, SELFPAY ==
--- NOTE | ~2025-02-25 | XR_ITS ---
HISTORY: Swelling, right side of neck COMPARISON: None TECHNIQUE: 2 views of the neck were performed FINDINGS: Normal delineation of the pharynx, larynx and trachea. Paravertebral soft tissues demonstrate normal width. No evidence of radiopaque foreign bodies or gas within the soft tissues. Cervical spine vertebral bodies have normal height and near normal alignment. Degenerative disease is identified at the level of C6/C7 with osteophyte formation and disc space laine rowing. Remainder of the cervical spine is unremarkable. IMPRESSION: Trace degenerative disease within the cervical spine without radiographic abnormality al hawa the right side of the patient's neck. Recommend ultrasound examination, if clinical suspicion persists. Reviewed, dictated and finalized at location A. IMPRESSION: Trace degenerative disease within the cervical spine without radio graphic abnormality along the right side of the patient's neck. Recommend ultrasound examination, if clinical suspicion persists.
== END 2025-02-25 15:56 | disposition home or self-care (01) ==
LOC: ANHBWCIMG 15:56
PROVIDERS: PCP Nurse Practitioner Adult Health; Visit Provider Nurse Practitioner Adult Health
DX: R59.9 Enlarged lymph nodes, unspecified (principal)
CPT/HCPCS: 70360

== ENCOUNTER 2025-06-17 07:06 | Outpatient (CLI) | payer OTHER, SELFPAY ==
--- OUTSIDE RECORDS SUMMARY | 2020-04-03 03:00 | XMS_ITS | Continuity of Care Document ---
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 [address], [facility], [place], [place], [address], [place]. tel:[phone] Referring Provider: Brandon Hudson, [address] [facility] [address], [place], [address] . tel:[phone] Office/outpat ient Visit, [facility], [address], [place], [place], [address], [place] tel:[phone] SEC Erlin YADAV Professional WIE (chief complaint) Abrasion of left cornea, initial encounter 0 Juan Carlos Taylor. [address], [place], [place], [address], [place]. tel:[phone] Referring Provider: Brandon Hudson, [address], [place], [address] . tel:[phone] Family History Family Member Type Diagnosis Age At Onset No Information Payers Payer name Insurance type Covered alliance party ID Trevin feldman(s) [id number] Social History Type Description Quantity Date Captured [...]
--- OUTSIDE RECORDS SUMMARY | 2025-06-17 07:13 | XMS_ITS | Clinical Summary ---
Author Organization [facility] Address [address] [place] [address] Phone Care Team Providers Care Riding Coach Name Role Phone Provider, None Primary Care Provider Unavailabl e Allergies No known active allergies Medications ondansetron (ZOFRAN-ODT) 4 MG TABLET DISPERSIBLE Take 1 Tab by mouth every 12 hours as needed for Nausea. 10 Tab 0 09/03/2015 Active Active Problems Problem Noted Date Diagnosed Date Leukocytosis 09/03/2015 Hypokalemia 09/03/2015 Hyponatremia 09/03/2015 GERD (gastroesophageal reflux disease) 5 UTI (urinary tract infection) 09/03/2015 Nausea & vomiting 09/03/2015 Family History Medical History Relation Name Comments Cancer Father Cancer Mother Relation Name Status Comments Father Mother Social History Tobacco Use Types Packs/Day Years Used Date Smoking Tobacco: Never Smokeless Tobacco: Never Alcohol Use Standard Drinks/Week Comments No 0 (1 standard drink = 0.6 oz pur e alcohol) Sex and Gender Information Value Date Recorded Sex Assigned at Not on file Legal Sex Male 12:24 AM CDT Gender Identity Not on file Sexual Orientation Not on file Last Filed Vital Signs Vital Sign Reading Time Taken Comments Blood Pressure 117/62 09/03/2015 7:25 AM LABORER TIN CAN Pulse 60 09/03/2015 5:30 AM LABORER TIN CAN Temperature 36.9 C (98.4 F) 09/03/2015 7:25 AM LABORER TIN CAN Respiratory Rate 18 09/03/2015 7:25 AM LABORER TIN CAN Oxygen Saturation 97% 09/03/2015 6:07 AM LABORER TIN CAN Inhaled Oxygen Concentration - - Weight 81.6 kg (180 lb) 09/03/2015 6:07 AM LABORER TIN CAN Height 182.9 cm (6') 09/03/2015 6:07 AM LABORER TIN CAN Body Mass Index 24.41 09/03/2015 6:07 AM LABORER TIN CAN Plan of Treatment Not on file Insurance [employer] Care Teams Riding Coach Relationship Specialty Start Date End Date Provider, None [place] PCP - General 09/03/15
[2025-06-17 18:51] LABS: Hematocrit 47.1 % (42.0-52.0); Hemoglobin 14.7 g/dL (14.0-18.0); Mean Corpuscular HGB Conc 31.2 g/dl (32-36); Mean Corpuscular Hemoglobin 28.5 pg (26-34); Mean Corpuscular Volume 91.5 fl (80-100); Platelet Count Result 295 k/mm3 (150-375); Red Blood Count 5.15 M/mm3 (4.6-6.20); White Blood Count 8.4 K/mm3 (4.5-10.0)
[2025-06-17 19:08] LABS: Alanine Aminotransferase 18 U/L (6-50); Albumin Level 4.5 g/dL (3.5-5.1); Alkaline Phosphatase 87 U/L (38-126); Anion Gap 7 mmol/L (4-12); Aspartate Amino Transferase 57 U/L (17-59); Bilirubin,Total 0.4 mg/dL (0.2-1.3); Blood Urea Nitrogen 15 mg/dL (9-20); Calcium 9.2 mg/dL (8.4-10.2); Carbon Dioxide 30 mmol/L (22-30); Chloride 99 mmol/L (98-107); Cholesterol 191 mg/dL (0-200); Estimated Glomerular Filt Rate > 60; Glucose 99 mg/dL (65-110); HDL Direct 43 mg/dL; Potassium 4.7 mmol/L (3.4-5.0); Sodium 136 mmol/L (137-145); Total Protein 7.6 g/dL (6.3-8.2); Triglycerides 162 mg/dL (<150)
[2025-06-17 19:45] LABS: Thyroid Stimulating Hormone 1.160 uIU/mL (0.465-4.680)
[2025-06-17 20:04] LABS: Vitamin B12 929.0 pg/mL (239-931)
== END 2025-06-17 07:07 | disposition home or self-care (01) ==
PROVIDERS: PCP Nurse Practitioner Adult Health; Visit Provider Nurse Practitioner Adult Health
DX: Z00.00 Encounter for general adult medical examination without abnormal findings (principal); E53.8 Deficiency of other specified B group vitamins
CPT/HCPCS: 36415; 80053; 80061; 82607; 84443; 85027

== ENCOUNTER 2025-06-19 06:59 | Outpatient (CLI) | payer OTHER, SELFPAY ==
[2025-06-22 14:08] LABS: Free Testosterone (Direct) 9.0 pg/mL (6.8-21.5)
== END 2025-06-19 07:00 | disposition home or self-care (01) ==
LOC: ANHBWCLAB 06:59
PROVIDERS: PCP Nurse Practitioner Adult Health; Visit Provider Nurse Practitioner Adult Health
DX: R53.83 Other fatigue (principal)
CPT/HCPCS: 84402; 84403

== ENCOUNTER 2025-07-08 06:58 | Outpatient (CLI) | payer OTHER, SELFPAY ==
--- OUTSIDE RECORDS SUMMARY | 2020-04-03 02:00 | XMS_ITS | Continuity of Care Document ---
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 Role Phone Brandon Rangel MD Unavailable Unavailable Allergies, Adverse Reactions, Alerts Substance Reaction Status Criticality No Known Allergies Active No Inform ation Medications Medication Instructions Dosage Effective Dates (start - stop) Status Comments Polytrim 10,000 unit-1 mg/mL eye drops Instill one drop into left eye 4x daily - Active omeprazole 10 mg capsule,delayed release take 2 capsule by oral route every day before a meal 20 MG - Active vitamin A 8,000 unit capsule take 1 capsule by oral route every day - Active Procedures Procedure Date Office/outpatient Visit, Est Office/outpatient Visit, New Advance Directives Directive Yes / No Effective Date File Name No Information Encounters Encounter Description Practice Location Reason(s) For Visit Diagnoses Date Provider Providers Copied on Encounter Office/outpat ient Visit, Est [facility], [address], [place], [place], [id number], [place] tel:[phone] SEC Erlin [place] Professional 4 day Corneal abrasion f/u (chief complaint) Abrasion of left cornea, subsequent encounter 0 Juan Carlos Taylor. [address], [facility], [place], [place], [id number], [place]. tel:[phone] Referring Provider: Brandon Hudson, [address] [facility], [place], [address] . tel:[phone] Office/outpat ient Visit, [facility], [address], [place], [place], [id number], [place] tel:[phone] SEC Erlin YADAV Professional WIE (chief complaint) Abrasion of left cornea, initial encounter 0 Juan Carlos Taylor. [address], [place], [place], [address], [place]. tel:[phone] Referring Provider: Brandon Hudson, [address], [place], [address] . tel:[phone] Family History Family Member Type Diagnosis Age At Onset No Information Payers Payer name Insurance type Covered democrat ID Trevin feldman(s) [id number] Social History Type Description Quantity Date Captured Comments Alcohol Use Details No Caffeine Use Details No Tobacco Use Status Current non-smoker 20 Smoking Status Never smoker Non-Smoking Tobacco Use Details : No Details Available : No Details Available Sex Male Chief Complaint And Reason For Visit From encounter dated '04/03/2020 08:00'. 4 day Corneal abrasion f/u (chief complaint). Description: The 39 year old male presents for evaluation of 4 day Corneal abrasion f/u in the left eye. Patient states the left eye is much better. 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 Reason For Referral Reason For Referral No Information Plan Of Treatment Date Type Action Status Patient Education Corneal Scratches: Care Instructions completed History Of Present Illness Encounter Date Complaint History Of Prese nt Illness 4 day Corneal abrasion f/u The [age] year old male presents for evaluation of 4 day Corneal abrasion f/u in the left eye. Patient states the left eye is much better. 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 WIE The 39 year old male presents for evaluation of WIE in the left eye. Patient states he was walking around the house and thinks something got into his left eye. Left eye is painful, red, sensitive to light, and tearing. Patient wears night and day disp CL's OU, he sleeps in CL's, and tosses when they start bothering him. Patient has CL's in the right eye but not the left. Tech instilled a gtt of Alcaine to left eye Functional Status Date Functional Assessmen t No Information Instructions Date Instruction Additional Infor isabela Impression/Plan Impression/Plan Assessments Type Assessment Date assessment Abrasion of left cornea, subsequ ent encounter Patient Care Teams Name Effective Dates (start - stop) Status Members No Information
--- OUTSIDE RECORDS SUMMARY | 2025-07-08 07:01 | XMS_ITS ---
Author Organization Unknown ENCOUNTERS Encounter Performer Location Date Diagnosis Diagnosis Status Outpatient [facility] [address] [place] [address] [id number] Outpatient [facility] [address] [place] [address] [id number] [facility] Outpatient [facility] [address] [place] [address] [id number] [facility] Outpatient [facility] [address] [place] [address] [id number] [facility] Outpatient [facility] [address] [place] [address] [id number] [facility] Outpatient [facility] [address] [place] [address] [id number] [facility] Outpatient [facility] [address] [place] [address] [id number] [facility] Outpatient [facility] [address] [place] [address] [id number] [facility] Outpatient [facility] [address] [place] [address] [id number] [facility] Outpatient [facility] [address] [place] [address] [id number] [facility] Outpatient [facility] [address] [place] [address] [id number] [facility] Outpatient [facility] [address] [place] [address] [id number] [facility] *Note: Encounters from your own facility or health system may be excluded. Allergies, Adverse Reactions, Alerts Allergen Type Severity Identification Date Medications Name Date Quantity Days Supplied GPI Number
--- OUTSIDE RECORDS SUMMARY | 2025-07-08 07:01 | XMS_ITS | Clinical Summary ---
Author Organization [facility] Address [address] [place] [address] Phone Care Team Providers Care Hydrate Thickener Operator Name Role Phone Provider, None Primary Care [...] Comments Blood Pressure 117/62 09/03/2015 7:25 AM SERVICE CENTER SPECIALIST Pulse 60 09/03/2015 5:30 AM SERVICE CENTER SPECIALIST Temperature 36.9 C (98.4 F) 09/03/2015 7:25 AM SERVICE CENTER SPECIALIST Respiratory Rate 18 09/03/2015 7:25 AM SERVICE CENTER SPECIALIST Oxygen Saturation 97% 09/03/2015 6:07 AM SERVICE CENTER SPECIALIST Inhaled Oxygen Concentration - - Weight 81.6 kg (180 lb) 09/03/2015 6:07 AM SERVICE CENTER SPECIALIST Height 182.9 cm (6') 09/03/2015 6:07 AM SERVICE CENTER SPECIALIST Body Mass Index 24.41 09/03/2015 6:07 AM SERVICE CENTER SPECIALIST Plan of Treatment Not on file Insurance [employer] Care Teams Hydrate Thickener Operator Relationship Specialty Start Date End Date Provider, None [place] PCP - General 09/03/15
--- OUTSIDE RECORDS SUMMARY | 2025-07-08 07:01 | XMS_ITS | Clinical Summary ---
Author Organization [facility] Address [address] [place] [address] Care Team Providers Care Delivery Person Name Role Phone Dayanara Fuller MD Primary Care Provider Chandra cavanaugh Source Comments [facility],non-owned Affiliates and Associated Physician Practices is amultiple site organization consisting of ambulatory clinics and hospital sitesin [place], [place], [place] and [place]. This disclosure is being madepursuant to the Care Everywhere program and may not contain all information available regarding this patient. Last updated 18.CNZZ Allergies No known active allergies Medications * Be aware that medications may not be up to date on this document. Alwaysverify current medications with the patient. omeprazole (PRILOSEC) 10 MG capsule Take 10 mg by mouth daily before breakfast Active Social History Tobacco Use Types Packs/Day Years Used Date Smoking Tobacco: Former Cigarettes 1 5 Smokeless Tobacco: Never Sex and Gender Information Value Date Recorded Sex Assigned at Not on file Legal Sex Male 10:23 PM GRIEF COUNSELOR Gender Identity Not on file Sexual Orientation Not on file Last Filed Vital Signs Vital Sign Reading Time Taken Comments Blood Pressure 110/68 08/25/2019 9:56 AM GRIEF COUNSELOR Pulse 82 08/25/2019 9:56 AM GRIEF COUNSELOR Temperature 36.9 C (98.4 F) 08/25/2019 9:56 AM GRIEF COUNSELOR Respiratory Rate - - Oxygen Saturation 98% 08/25/2019 9:56 AM GRIEF COUNSELOR Inhaled Oxygen Concentration - - Weight 88.5 kg (195 lb) 08/25/2019 9:56 AM GRIEF COUNSELOR Height 182.9 cm (6') 08/25/2019 9:56 AM GRIEF COUNSELOR Body Mass Index 26.45 08/25/2019 9:56 AM GRIEF COUNSELOR Plan of Treatment Health Maintenance Due Date Last Done Comments LIPID TESTING 1981 HIV SCREENING 1996 HEPATITIS C SCREENING 11/04/1999 DTAP/TDAP/TD VACCINES (1 - Tdap) 2000 HEPATITIS B VACCINE (1 of 3 - 19+ 3-dose series) 2000 HPV VACCINE (1 - 3-dose SCDM series) 2008 DEPRESSION SCREENING 09/04/2024 COVID-19 VACCINE (1 - 2023-2 5 season) 2025 INFLUENZA VACCINE (#1) 2025 ZOSTER VACCINE (1 of 2) 11/09/2031 HIB VACCINE Aged Out No longer eligi ble based on patient's age to complete this topic MENINGOCOCCAL (Group B) VACC INE SHARED DECISION-MAKING Aged Out No longer eligibl e based on patient's age to complete this topic MENINGOCOCCAL GROUPS A/C/Y/W VACCINE Aged Out No longer eligible b ased on patient's age to complete this topic PNEUMOCOCCAL VACCINE Aged Out No long er eligible based on patient's age to complete this topic Insurance [facility] * Guarantor: DONNY PIEDRA Account Type Relation to Patient Date of Phone Billing Address Personal/Family [address] [place] [address] [facility] SELF PAY NO INSURANCE Member Subscriber Plan / Payer (Ef fective for All Dates) Name:Donny Piedra Member ID:Not on file Relation to Subscriber:Not on file Name:DONNY PIEDRA Subscriber ID:Not on file Address: [address] [place], [place] [id number] Payer ID:Not on file Group ID:Not on file Type:Self Pay Address: [place], [place] * Guarantor: DONNY PIEDRA Account Type Relation to Patient Date of Phone Billing Address Personal/Family [address] [place], [place] [id number] [facility] INSURANCE Member Subscriber Plan / Payer (Ef fective for All Dates) Name:Donny Piedra Member ID:Not on file Relation to Subscriber:Not on file Name:DONNY PIEDRA Subscriber ID:Not on file Address: [address] [place], [place] [id number] Payer ID:Not on file Group ID:Not on file Type:Self Pay Address: [place], [place] * Guarantor: DONNY PIEDRA Account Type Relation to Patient Date of Phone Billing Address Personal/Family [address] [place], [place] [id number] [facility] INSURANCE Member Subscriber Plan / Payer (Ef fective for All Dates) Name:Donny Piedra Member ID:Not on file Relation to Subscriber:Not on file Name:DONNY PIEDRA Subscriber ID:Not on file Address: [address] [place] [address] Payer ID:Not on file Group ID:Not on file Type:Self Pay Address: [place], [place] * Guarantor: DONNY PIEDRA Account Type Relation to Patient Date of Phone Billing Address Personal/Family [phone] HEALTH SELF PAY NO INSURANCE Member Subscriber Plan / Payer (Ef fective for All Dates) Name:Donny Piedra Member ID:Not on file Relation to Subscriber:Not on file Name:DONNY PIEDRA Subscriber ID:Not on file Address: [address] [place] [address] Payer ID:Not on file Group ID:Not on file Type:Self Pay Address: [place], [place] * Guarantor: DONNY PIEDRA Account Type Relation to Patient Date of Phone Billing Address Personal/Family [address] [place] [address] HEALTH SELF PAY NO INSURANCE Member Subscriber Plan / Payer (Ef fective for All Dates) Name:Donny Piedra Member ID:Not on file Relation to Subscriber:Not on file Name:DONNY PIEDRA Subscriber ID:Not on file Address: [address] [place], [place] [id number] Payer ID:Not on file Group ID:Not on file Type:Self Pay Address: [place], [place] * Guarantor: DONNY PIEDRA Account Type Relation to Patient Date of Phone Billing Address Personal/Family [address] [place] [address] [facility] SELF PAY NO INSURANCE Member Subscriber Plan / Payer (Ef fective for All Dates) Name:Donny Piedra Member ID:Not on file Relation to Subscriber:Not on file Name:DONNY PIEDRA Subscriber ID:Not on file Address: [address] [place] [address] Payer ID:Not on file Group ID:Not on file Type:Self Pay Address: [place], [place] Care Teams Delivery Person Relationship Specialty Start Date End Date Dayanara Fuller MD [address] [facility] [address] [place] [address] PCP - General Family Medicine 08/25/19
[2025-07-11 10:08] LABS: Free Testosterone (Direct) 11.0 pg/mL (6.8-21.5)
== END 2025-07-08 06:59 | disposition home or self-care (01) ==
LOC: ANHBWCLAB 06:59
PROVIDERS: PCP Nurse Practitioner Adult Health; Visit Provider Nurse Practitioner Adult Health
DX: R53.83 Other fatigue (principal)
CPT/HCPCS: 84402; 84403